=== PATIENT | male | born 1985 | race Caucasian/White ===

== ENCOUNTER 2022-01-01 16:08 | Emergency (ER) | payer SELFPAY ==
--- NOTE | 2022-01-01 16:10 | ED.URI ---
HPI - URI/Sore Throat General Chief Complaint: Upper Respiratory Infection Stated Complaint: Sore throat Time Seen by Provider: 01/01/22 16:10 Source: patient and RN notes reviewed History of Present Illness HPI Narrative: Patient is a 36-year-old male who presents the urgent care with complaints of a sore throat and soreness with swallowing. Patient states that it started on and he has been taking NyQuil. Patient reports of a slight cough with swallowing but otherwise denies of any upper respiratory complaints. Denies of any fever, chills, nausea, vomiting. Denies of any ill contacts. No other acute complaints. No acute distress noted. Patient aware of the plan of care. Some parts of this dictation were generated by voice recognition software and may contain typographical and/or grammatical inaccuracies. Related Data Allergies Allergy/AdvReac Type Severity Reaction Status Date / Time No Known Allergies Allergy Verified 01/01/22 16:19 Review of Systems Review of Systems: CONSTITUTIONAL: Denies fever, chills, or sweats. EYES: Denies visual changes, redness, or discharge. ENT: Denies rhinorrhea, congestion, or otalgia. Reports of sore throat CARDIOVASCULAR: Denies chest pain, palpitations, or edema. RESPIRATORY: Denies cough or dyspnea. GASTROINTESTINAL: Denies abdominal pain, nausea, vomiting, or diarrhea. GENITOURINARY: Denies dysuria or hematuria. SKIN: Denies rash or itching. MUSCULOSKELETAL: Denies back pain, joint pain, or myalgia. NEUROLOGIC: Denies headache, numbness, or weakness. All other systems reviewed are negative, except as documented in HPI. PMFSH Comments At the time of my signature, I reviewed and agree with the nursing past medical, surgical, social, and family history. There is no relevant family history pertinent to the patient complaint. Exam Narrative: GENERAL: This is a well-nourished, well-developed patient, in no apparent distress. HEAD: normocephalic, atraumatic. EYES: PERRL. Sclera clear/white. Vision is grossly intact. EARS: External ears normal, auditory canals clear and without drainage, TMs normal without perforation. Hearing grossly intact. NOSE: External nose normal with no obvious nasal discharge, nares without redness, no rhinorrhea. THROAT: Mucous membranes moist, posterior pharynx clear. moderate erythema noted to posterior oropharynx without exudate or ulceration. NECK: Neck supple, non-tender without lymphadenopathy CARDIOVASCULAR: Regular rate and rhythm without murmurs, gallops, or rubs. RESPIRATORY: Clear to auscultation. Breath sounds equal bilaterally. No wheezes, rales, or rhonchi. SKIN: warm, intact with no suspicious lesions or rash, good texture and turgor. NEURO: awake, alert, and oriented to person, place and time. There were no obvious focal neurologic abnormalities. EXTREMITIES: No clubbing, cyanosis, or edema. Course Course Level of Care: Express Care Visit Vital Signs Vital signs: Vital Signs Temperature 97.1 F L 01/01/22 16:22 Pulse Rate 76 01/01/22 16:22 Respiratory Rate 16 01/01/22 16:22 Blood Pressure 105/78 01/01/22 16:22 Pulse Oximetry 99 01/01/22 16:22 Temperature 97.1 F L 01/01/22 16:22 Pulse Rate 76 01/01/22 16:22 Respiratory Rate 16 01/01/22 16:22 Blood Pressure 105/78 01/01/22 16:22 Pulse Oximetry 99 01/01/22 16:22 Reviewed MDM - URI/Sore Throat MDM Narrative Medical decision making narrative: Reviewed lab results with the patient. He is aware that strep swab was negative. Educated the patient on step culture and we will call if culture is positive and antibiotics are necessary. Advised patient to complete steriod regime as prescribed. Be sure to eat and drink with the medication. Use a daily antihistamine in conjunction with Flonase nasal spray. Use tylenol/motrin as needed for pain or fever. May also use Chloraseptic or lidocaine for throat soothing.. Follow-up with your PCP within 2-5 days for worsening
[2022-01-01 16:22] VITALS: BP 105/78; PULSE 76; RESP 16; TEMP 36.2; O2SAT 99
== END 2022-01-01 16:42 | disposition home or self-care (01) ==
PROVIDERS: Emergency Provider Nurse Practitioner Family
DX: J02.9 Acute pharyngitis, unspecified (principal)
CPT/HCPCS: 87081; 87880; 99213; G0463